=== PATIENT | female | born 1970 | race Hispanic/Latino ===

== ENCOUNTER → 2019-02-26 | Outpatient (CLI) | payer BC | END | disposition home or self-care (01) | LOC: OIH 10:03 | PROVIDERS: ATTEND Internal Medicine | DX: M23.92 Unspecified internal derangement of left knee (principal) | CPT/HCPCS: 73560 ==

== ENCOUNTER → 2020-05-04 | Outpatient (CLI) | payer BC | END | disposition home or self-care (01) | LOC: OIH 15:31 | PROVIDERS: ATTEND Internal Medicine | DX: I10 Essential (primary) hypertension (principal) | CPT/HCPCS: 71046 ==